=== PATIENT | female | born 1945 | race Caucasian/White ===

== ENCOUNTER 2025-09-06 11:54 | Emergency (ER) | payer MEDICARE, SELFPAY ==
[2025-09-06 11:56] VITALS: BP 182/85; PULSE 96; RESP 18; TEMP 37.9; O2SAT 98
[2025-09-06 11:58] VITALS: TEMP 37
--- OUTSIDE RECORDS SUMMARY | 2025-09-06 12:00 | XMS_ITS | Clinical Summary ---
Author Organization [facility] Address [address] [place] [address] Care Team Providers Care Brand Marketing Specialist Name Role Phone Moises Ferguson MD Primary Care Provider [phone] Allergies No known active allergies Medications psyllium seed, sugar, (METAMUCIL, SUGAR,) powder 0 0 5 Active ui-dsc-vmlmx acid-lutein (CENTRUM SILVER) 400-250 mcg tablet,chewabl e 0 0 5 Active aspirin (ASPIRIN LOW DOSE) 81 mg tablet take 1 tablet by oral route every day 0 0 7 Active fluticasone propionate (FLONASE) 50 mcg/actuation nasal sprayIndicatio ns:Allergic Conjunctivitis ,Allergic Rhinitis Shake liquid and use 2 sprays in each nostril daily 16 g 1 5 Active blood-glucose meter kitIndications :Type 2 diabetes mellitus with hyperglycemia, without long-term current use of insulin (HCC) 1 kit 2 (two) times a day Test BID DX: diabetes E11.9. Testing bid due to hypogylemia/hyper glycemia. 1 kit 5 04/01/20 26 Active blood glucose diagnostic (glucose blood) stripIndicatio ns:Type 2 diabetes mellitus with hyperglycemia, without long-term current use of insulin (HCC) Use to check blood sugar bid DX:E11.9 testing bid hypoglycemia / hyperglycemia 200 each 3 5 04/01/20 26 Active lancets misc Check blood sugar 4 times a day or as directed. 100 each 4 5 Active pravastatin (PRAVACHOL) 40 mg tabletIndicati ons:Hyperchole sterolemia TAKE 1 TABLET(40 MG) BY MOUTH DAILY 90 tablet 1 5 Active Active Problems Problem Noted Date Diagnosed Date Type 2 diabetes mellitus wit h hyperglycemia, without long-term current use of insulin 04/01/2025 Class 2 severe obesity due t o excess calories with serious comorbidity and body mass index (BMI) of 36.0 to 36.9 in adult 04/01/2025 Encounter for Medicare annual wellness exam 01/29 Assessment & Plan (03/13/2025 12:34 PM CDT): Immunizations were reviewed Eye exam and dental uptodate Bmd ordered Labs were reviewed and ordered Mixed hyperlipimdeia goal ldl is under 100 Declines mammogram last in 2019 Assessment & Plan (02/23/2024 10:31 AM CDT): IMMUNIZATIONS WERE REVIEWED MEDS WERE REVIEWED LABS WERE ORDERED TODAY PRAVACHOL AND FLONASE WERE SENT TODAY DISCUSSED HER WEIGHT TODAY MENTALLY SHE IS DOING OK CONTINUE PRAVACHOL 40 MG PO QDAY FLP AND LDL WERE ORDERED DISCUSSED BETTER DIETARY HABITS Viral infection 10/14/2020 Assessment & Plan (10/14/2020 3:15 PM VISUAL BASIC PROGRAMMER): Pt most likely has viral URI and does not require antibiotics. I am advising supportive care today with flonase and tessalon perles. She can also get mucinex OTC as well for drainage. Covid-19 test was NEGATIVE today. Abnormal mammogram of right breast 12/06/2019 Assessment & Plan (12/06/2019 9:39 AM VISUAL BASIC PROGRAMMER): We had tried to get hold of Miss Lujan when I got the results of the mammogram. I reviewed the results with her today and read her the whole content . She is adamant about not DOING anything about the mammogram. She DOES NOT want to have mammograms repeated either . Pros and cons were reviewed and discussed today . Options given if she dedcides to change her mind about this issue Lichen planus 05/25/2018 Asthma 03/15/2014 Overview (02/02/2017): ASTHMA NOS Allergic state 04/03/2013 Overview (02/02/2017): H/O seasonal allergies Hypercholesterolemia 01/17/2013 Overview (02/01/2017): Hypercholesterolemia Seasonal allergic rhinitis 01/17/2013 Overview (02/02/2017): Seasonal allergies Atrophic vaginitis 01/17/2013 Overview (02/03/2017): Postmenopausal atrophic vaginitis Stress incontinence in female 01/17/2013 Overview (02/03/2017): Urinary, incontinence, stress female Encounters Date Type Department Care Team Description 07/23/2025 Telephone [facility] [address] [facility] [address] [place] [address] Moises Ferguson MD Immunizations 07/10/2025 9:30 AM CDT Office Visit [facility] [address] [facility] [address] [place] [address] Gabrielle Ray NP Type 2 diabetes mellitus with hyperglycemia, without long-term current use of insulin (HCC) (Primary Dx) 07/10/2025 Telephone [facility] [address] [facility] [address] [place] [address] Moises Ferguson MD 07/03/2025 8:10 AM CDT Lab [facility] [address] [facility] [address] [place] [address] Type 2 diabetes mellitus with hyperglycemia, without long-term current use of insulin (HCC) 06/19/2025 10:49 AM CDT - 06/19/2025 11:59 PM CDT Hospital Encounter [facility] [address] [facility] [address] [place] [address] Discharge Disposition: Discharge to home or self care 06/12/2025 11:00 AM CDT - 06/12/2025 11:59 PM CDT Hospital Encounter [facility] [address] [facility] [address] [place] [address] Discharge Disposition: Discharge to home or self care from Last 3 Months Immunizations Immunization Administration Dates Next Due Influenza, Quadrivalent, Hig h Dose, Preservative Free, Intrr 07/28/2021 Influenza, Quadrivalent, Spl it, Preservative Free, Intramuscular 08/19/2020 Influenza, Split 07/30/2011,08/27/2010 Influenza, Trivalent, High D ose, Split, Preservative Free, Intramuscular 07/22/2019,07/18/2018,07/16/2017,08/07,07/21/2015 Influenza, Trivalent, IM (MDV) 5,08/11/2014,08/09/2013,07/31 Influenza, Unspecified 07/23/2025,2024(Deferred: Patient Refused),08/21/2023(Deferred: Patient Refused),1945 Pneumococcal Conjugate PCV 13 05/11/2016 Pneumococcal Polysaccharide PPV23 10/30/2008, Td, adsorbed 06/24/2009 ZOSTER LIVE 08/12/2015,05/26/2015 Surgical History Surgery Date Site/Laterality Comments TOTAL ABDOMINAL HYSTERECTOMY W/ BILATERAL SALPINGOOPHORECTOMY 1993 Hysterectomy, total abdominal, BSO APPENDECTOMY 1988 Appendectomy TOTAL ABDOMINAL HYSTERECTOMY W/ BILATERAL SALPINGOOPHORECTOMY 1988 Hysterectomy, total abdominal, BSO OTHER SURGICAL HISTORY 2010 Grieving: OTHER SURGICAL HISTORY Endometriosis: LEILA/BSO OTHER SURGICAL HISTORY Osteopenia: improved on Fosamax OTHER SURGICAL HISTORY 1988 Appendicitis: Appendectomy OTHER SURGICAL HISTORY 1970 Hand problem: hand surgery Medical History Medical History Date Comments Hx Other Medical Osteopenia Hx Other Medical Bronchospasm Hx Other Medical Rhinitis Hx Other Medical 1967 ; Outc ome: Male Hx Other Medical Grieving; Comme nts: Zhen Vora DO; Outcome: Resolved from Problem List Hx Other Medical puller over visit Endometritis 1993 Endometriosis Hyperlipidemia Hyperlipidemia Hx Other Medical Seasonal allerg ies and asthma Hx Other Medical 1988 Appendicitis Hx Other Medical 1970 Hand problem Hx Other Medical Fx hand 1986/; Comments: MIRLANDE 06/29/2015 - Family History Medical History Relation Name Comments Lung cancer Father 2 Cancer, lung; C ause of : Cancer, lung Anuerysm Mother 2 Aneurysm; Cause of : Aneurysm Diabetes Mother 2 Diabetes mellit us; Other Mother 2 Carotid Aneurys m; Cause of : Carotid Aneurysm Other Son 3 #1 Alive and well; Other Son 4 #2 Alive and well; Relation Name Status Comments Father 1 (Age 53) Father 2 Mother 1 Mother 2 Son 1 #1 Alive Son 2 #2 Alive Son 3 #1 Son 4 #2 Social History Tobacco Use Types Packs/Day Years Used Date Smoking Tobacco: Never Smokeless Tobacco: Never Tobacco Cessation:Counseling Given: Not Answered Alcohol Use Standard Drinks/Week Comments Yes 0 (1 standard drink = 0.6 oz pur e alcohol) PHQ-2 Answer Date Recorded PHQ-2 Total Score (If total score is 3 or more points, staff should administer the PHQ-9) 0 07/10/2025 Comments No Sex and Gender Information Value Date Recorded Sex Assigned at Not on file Legal Sex Female 12:10 PM VISUAL BASIC PROGRAMMER Gender Identity Not on file Sexual Orientation Not on file Last Filed Vital Signs Vital Sign Reading Time Taken Comments Blood Pressure 132/64 07/10/2025 9:09 AM CDT Pulse 74 07/10/2025 9:09 AM CDT Temperature 37.2 C (98.9 F) 07/10/2025 9:09 AM CDT Respiratory Rate 18 07/10/2025 9:09 AM CDT Oxygen Saturation 96% 07/10/2025 9:09 AM CDT Inhaled Oxygen Concentration - - Weight 83.5 kg (184 lb) 07/10/2025 9:09 AM CDT Height 165.1 cm (5' 5) 07/10/2025 9:09 AM CDT Body Mass Index 30.62 07/10/2025 9:09 AM CDT Plan of Treatment Health Maintenance Due Date Last Done Comments Hepatitis C Screening 1945 Dilated Eye Exam 1945 Hepatitis B Screening 1964 DTaP/Tdap/Td Vaccine (1 - Tdap) 06/25/2009 9 Zoster Vaccine (2 of 3) 10/07/2015 08/12/2015, 05/26 Pneumococcal vaccine 65+ (3 of 3 - PCV20 or PCV21) 05/11/2021 05/11/2016, 10/30/2008, 08/28/2008 Hemoglobin A1C 12/31/2025 07/03/2025, 03/25/2025 Fall Risk Assessment 03/12/2026 03/12/2025, 02/23/2024, 01/26/2023, Additional history exists Lipid Panel 03/12/2026 03/12/2025, 01/29, 01/26/2023, Additional history exists Well Visit 65+ 03/12/2026 03/12/2025, 01/29, 01/26/2023, Additional history exists Albumin Creatinine Ratio, Urine 07/03/2026 eGFR 07/03/2026 07/03/2025, 04/01, 03/12/2025, Additional history exists Depression Screening 07/10/2026 07/10/2025, 05/01/2025, 04/01/2025, Additional history exists Foot Exam 07/10/2026 07/10/2025 Osteoporosis Screening-Bone Density Scan 04/23/2027 04/23/2025 Breast Cancer Screening-Mammogram Discontinued 019 Influenza Vaccine Completed 07/23/2025, , 08/19/2020, Additional history exists Procedures Procedure Name Priority Date/Time Associated Diagnosis Comments EGFR Routine 07/03/2025 7:53 AM CDT Type 2 diabetes mellitus with hyperglycemia, without long-term current use of insulin (HCC) CHOLESTEROL, LDL, DIRECT Routine 07/03/2025 7:53 AM CDT Type 2 diabetes mellitus with hyperglycemia, without long-term current use of insulin (HCC) HEMOGLOBIN A1C Routine 07/03/2025 7:53 AM CDT Type 2 diabetes mellitus with hyperglycemia, without long-term current use of insulin (HCC) COMPREHENSIVE METABOLIC PANEL Routine 07/03/2025 7:53 AM CDT Type 2 diabetes mellitus with hyperglycemia, without long-term current use of insulin (HCC) ALBUMIN CREATININE RATIO, URINE Routine 07/03/2025 7:53 AM CDT Type 2 diabetes mellitus with hyperglycemia, without long-term current use of insulin (HCC) DEXA AXIAL SKELETON BONE DENSITY 1 OR MORE SITES Schedule Routine, Read Routine (OP Routine) 04/23/2025 9:12 AM CDT Menopause LIPID PANEL Routine 03/12/2025 9:58 AM CDT Hypercholesterole adriano SCREENING MAMMOGRAM 2D BILATERAL Schedule Routine, Read Routine (OP Routine) 11/30/2018 10:40 AM VISUAL BASIC PROGRAMMER Breast cancer screening from Last 3 Months or Most Recently Relevant to Health Maintenance Results * eGFR (07/03/2025 7:53 AM CDT) eGFR 89 >=60 mL/min/1. 73 m2 Comment: Interpretive Data Reference Interval Normal >/= 90 mL/min/1.73m2 Mildly decreased* 60 - 89 mL/min/1.73m2 Mildly to moderately decreased 45 - 59 mL/min/1.73m2 Moderately to severely decreased 30 - 44 mL/min/1.73m2 Severely decreased 15 - 29 mL/min/1.73m2 Kidney Failure < 15 mL/min/1.73m2 *Relative to young adult level Estimated glomerular filtration rate is determined by the 2020 CKD-EPI equation recommended by the National Kidney Foundation (A Unifying Approach to GFR Estimation: Recommendations of the NKF-ASK Task Force on Reassessing the Inclusion of Race in Diagnosing Kidney Disease, JASN 2020). The CKD-EPI equation should not be used for patients with unstable renal function and has not been validated in children and those over 70. Current interpretive data was last reviewed 2021. Testing performed by: [facility], [id number] [place] [address], [place]., [address] Blood 07/03/2025 7:53 AM CDT 07/03/2025 2:27 PM CDT us Gabrielle Ray NP LAB BLOOD ORDERABLES Final Resul t TAJ [address] [address] Department [place] [address] * Albumin Creatinine Ratio, Urine (07/03/2025 7:53 AM CDT) Albumin Ur 14.2 mg/L Comment: Interpretive Data No reference range established. Current interpretive data was last revised 2019. Testing performed by: [facility], [address] [place] [address]., [address] Creatinine Ur 94.0 mg/dL TAJ Comment: Interpretive Data No reference range established. Current interpretive data was last revised 2019. Testing performed by: [facility], [address] [place] [address]., [address] Albumin Creatinine Ratio, Ur 15 1 - 29 mg/g TAJ Comment:Testing performed by : [address] [address] Urine 07/03/2025 7:53 AM CDT 07/03/2025 2:10 PM CDT Gabrielle Ray SHAREPOINT WEB DEVELOPER LAB URINE ORDERABLES Final [facility]ul t [facility] [address] Department [place] [address] * Cholesterol, LDL, direct (07/03/2025 7:53 AM CDT) LDL Cholesterol, Direct 95 <=129 mg/dL Comment: Interpretive Data Ages < or = 19 years Acceptable: <110 mg/dL Borderline high: 110-129 mg/dL High: >or= 130 mg/dL Ages > or = 20 years Optimal: <100 mg/dL Near optimal: 100-129 mg/dL Borderline high: 130-159 mg/dL High: >160 mg/dL Literature References: 1. Expert Panel on Integrated Guidelines for Cardiovascular Health and Risk Reduction in Children and Adolescents. Pediatrics 2011;128:S213 2. NCEP Expert Panel. Circulation 2004;110:227 Current Interpretive Data was last revised on 2018. Testing performed by: [address] [address] Blood 07/03/2025 7:53 AM CDT 07/03/2025 2:10 PM CDT Gabrielle Ray NP LAB BLOOD ORDERABLES Final Resul t Performing Organization Address [facility] Co de Phone Number TAJ [address] [facility] [place] [address] * (ABNORMAL) Hemoglobin A1c (07/03/2025 7:53 AM CDT) Hgb A1C 5.7(H) 4.0 - 5.6 % Comment:Testing performed by : [address] [address] Estimated Average Glucose 117 mg/dL TAJ Comment: The ADA recommends reporting an estimated Average Glucose (eAG) with all Hemoglobin A1c results using the equation derived from a study of 507 normal and diabetic adults. Minority populations were underrepresented and children were not included. (Diabetes Care 31:5209-7831, 2008). The eAG is not equivalent to a fasting glucose. Testing performed by: [address] [address] Blood 07/03/2025 7:53 AM CDT 07/03/2025 2:10 PM CDT Gabrielle Ray NP LAB BLOOD ORDERABLES Final Resul t Performing Organization Address [facility] de Phone Number TAJ Aj [facility] [place] [address] * Comprehensive metabolic panel (07/03/2025 7:53 AM CDT) Pathologist [facility] Sodium 140 135 - 145 mmol/L Comment:Testing performed by : [address] [address] Potassium, pl 4.0 3.3 - 4.9 mmol/L TAJ Comment:Testing performed by : [address] [address] Chloride 103 97 - 110 mmol/L TAJ Comment:Testing performed by : [address] [address] CO2 26 22 - 32 mmol/L CERNER CH Comment:Testing performed by : [address] [address] Anion gap 11 2 - 15 mmol/L [facility]ER CH Comment:Testing performed by : [address] [address] BUN 17 6 - 25 mg/dL [facility] CH Comment:Testing performed by : [address], [address] Creatinine 0.67 0.60 - 1.10 mg/dL CERNER CH Comment:Testing performed by : [address], [address] Glucose 111 70 - 199 mg/dL CERNER CH Comment: Interpretive Data Fasting glucose >/= 126 mg/dl is diagnostic for diabetes. Fasting is defined as no caloric intake for at least 8 hours. Fasting glucose between 100 mg/dl to 125 mg/dl is diagnostic of prediabetes. In a patient with classic symptoms of hyperglycemia or hyperglycemic crisis, a random glucose >/= 200 mg/dl is diagnostic for diabetes. In the absence of unequivocal hyperglycemia, results should be confirmed by repeat testing. The classification and Diagnosis of Diabetes Diabetes Care 2021; 46: S19-S40. Current interpretive data was last revised 2022. Testing performed by: [address] [address] Calcium 9.6 8.5 - 10.3 mg/dL CERNER CH Comment:Testing performed by : [address], [address] Bilirubin, total 0.4 0.1 - 1.2 mg/dL [facility]ER CH Comment:Testing performed by : [address] [address] Protein, pl 7.2 6.5 - 8.5 g/dL [facility]ER CH Comment:Testing performed by : [address] [address] Albumin 4.3 3.5 - 5.0 g/dL CERNER CH Comment:Testing performed by : [address], [address] Alk phos 63 40 - 130 Units/L CERNER CH Comment:Testing performed by : [address], [address] ALT 18 7 - 45 Units/L TAJ Comment:Testing performed by : [facility], [address] [place] [address]., [address] AST 17 10 - 45 Units/L [facility] Comment:Testing performed by : [facility], [address] [place] [address]., [address] Blood 07/03/2025 7:53 AM CDT 07/03/2025 2:10 PM CDT Gabrielle Ray SHAREPOINT WEB DEVELOPER LAB BLOOD ORDERABLES Final Resul t TAJ [address] [facility] Department of Laboratories [place] [id number] * Dexa Axial Skeleton Bone Density 1 or 2 Site (04/23/2025 9:12 AM CDT) Anatomical Region Laterality Modality Body N/A Other 04/23/2025 6:02 PM CDT Narrative 04/23/2025 6:03 PM CDT EXAM DESCRIPTION: DEXA AXIAL SKELETON BONE DENSITY 1 OR MORE SITES REASON FOR STUDY: 80 y/o year old F with given history of: menopause screening 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 CLINICAL INFORMATION: Current height: 66 inches Maximum height: 66 inches Weight: 217 pounds Risk factors: Postmenopausal COMPARISON: None available FINDINGS: AP LUMBAR SPINE L1-L4: Total BMD is 1.016 g/cm2 T-score is -0.3 LEFT HIP: Total BMD is 1.085 g/cm2 T-score is 1.2 Femoral neck BMD is 0.782 g/cm2 T-score is -0.6 FRAX: FRAX not reported due to T-scores of hip, femoral neck and/or spine being at or above -1.0 (Normal). IMPRESSION: 1. Normal bone mass. REFERENCE: Bone mineral density: T-Score: Normal (T-score above or = -1.0) Low bone mass (T-score between -1.0 and -2.5) replaces the previously used term osteopenia Osteoporosis (T-score = or below -2.5) Z-Score: Within the expected range for age (Z-score above -2.0) Below the expected range for age (Z-score is -2.0 or below) Please see below follow up recommendations. Medical evaluation for secondary causes of low bone mineral density may be appropriate. FRAX is a World Health Organization validated fracture risk assessment tool that calculates a person's 10 year probability of a major osteoporosis related fracture and hip fracture. According to the National Osteoporosis Foundation guidelines, postmenopausal women and men age 50 or older with low bone mass and a 10 year probability of a major osteoporosis related fracture = or greater than 20% or a 10 year probability of a hip fracture = or greater than 3% should be considered for pharmacological treatment for the prevention of osteoporosis. For further information, including treatment recommendations, please refer to the 2019 ISCD Official Positions (http://www.iscd.org) and the NOF's Clinician's Guide to Prevention and Treatment of Osteoporosis (http://www.nof.org/professionals/clinical-guidelines) THIS IS AN ELECTRONICALLY VERIFIED FINAL REPORT 04/23/2025 6:03 PM - Electronically signed by Ibrahima Dodson M.D. MF: SCOT Report ID: [id number] Reading Location: [id number] Procedure Note Ibrahima Dodson MD - 04/23/2025 EXAM DESCRIPTION: DEXA AXIAL SKELETON BONE DENSITY 1 OR MORE SITES REASON FOR STUDY: 80 y/o year old F with given history of: menopause screening Charge Weigher/Model: [employer] (S/N [id number]) Facility LSC value of 0.022 for the AP spine, 0.027 for the femur, and0.023 for the forearm. CLINICAL INFORMATION: Current height: 66 inches Maximum height: 66 inches Weight: 217 pounds Risk factors: Postmenopausal COMPARISON: None available FINDINGS: AP LUMBAR SPINE L1-L4: Total BMD is 1.016 g/cm2 T-score is -0.3 LEFT HIP: Total BMD is 1.085 g/cm2 T-score is 1.2 Femoral neck BMD is 0.782 g/cm2 T-score is -0.6 FRAX: FRAX not reported due to T-scores of hip, femoral neck and/or spine beingat or above -1.0 (Normal). IMPRESSION: 1. Normal bone mass. REFERENCE: Bone mineral density: T-Score: Normal (T-score above or = -1.0) Low bone mass (T-score between -1.0 and -2.5) replaces thepreviously used term osteopenia Osteoporosis (T-score = or below -2.5) Z-Score: Within the expected range for age (Z-score above -2.0) Below the expected range for age (Z-score is -2.0 or below) Please see below follow up recommendations. Medical evaluation forsecondary causes of low bone mineral density may be appropriate. FRAX is a World Health Organization validated fracture risk assessmenttool that calculates a person's 10 year probability of a major osteoporosisrelated fracture and hip fracture. According to the National OsteoporosisFoundation guidelines, postmenopausal women and men age 50 or older with low bonemass and a 10 year probability of a major osteoporosis related fracture = or greater than 20% or a 10 year probability of a hip fracture = or greaterthan 3% should be considered for pharmacological treatment for the preventionof osteoporosis. For further information, including treatment recommendations, please referto the 2019 ISCD Official Positions (http://www.iscd.org) and the NOF's Clinician's Guide to Prevention and Treatment of Osteoporosis (http://www.nof.org/professionals/clinical-guidelines) THIS IS AN ELECTRONICALLY VERIFIED FINAL REPORT 04/23/2025 6:03 PM - Electronically signed by Ibrahima Dodson M.D. MF: SCOT Report ID: [id number] Reading Location: [place] [address] Moises Ferguson MD IM DXA PROCEDURES Final R esult * (ABNORMAL) Lipid panel (03/12/2025 9:58 AM CDT) [facility] Cholesterol 196 30 - 199 mg/dL Comment: Interpretive Data Ages < or = 19 years Acceptable: <170 mg/dL Borderline high: 170-199 mg/dL High: >or= 200 mg/dL Ages > or = 20 years Desirable: <200 mg/dL Borderline high: 200-239 mg/dL High: >or= 240 mg/dL Literature References: 1. Expert Panel on Integrated Guidelines for Cardiovascular Health and Risk Reduction in Children and Adolescents. Pediatrics 2011;128:S213 2. NCEP Expert Panel. Circulation 2004;110:227 Current Interpretive Data was last revised on 2018. Testing performed by: [address] [address] Triglycerides 272(H) <=149 mg/dL ATJ Comment: Interpretive Data Ages < or = 9 years Acceptable: <75 mg/dL Borderline high: 75-99 mg/dL High: >or= 100 mg/dL Ages 10 to 20 years Acceptable: <90 mg/dL Borderline high: 90-129 mg/dL High: >or= 130 mg/dL Ages > or = 20 years Desirable: <150 mg/dL Borderline high: 150-199 mg/dL High: 200-499 mg/dL Very high: >or= 499 mg/dL Literature References: 1. Expert Panel on Integrated Guidelines for Cardiovascular Health and Risk Reduction in Children and Adolescents. Pediatrics 2011;128:S213 2. NCEP Expert Panel. Circulation 2004;110:227 Current Interpretive Data was last revised on 2018. Testing performed by: [facility], [address] [place] [address]., [address] HDL 48 >=40 mg/dL TAJ Comment: Interpretive Data Ages < or = 19 years Acceptable: >45 mg/dL Borderline low: 40-45 mg/dL Low: <40 mg/dL Ages > or = 20 years Desirable: >or= 60 mg/dL Low: <40 mg/dL Literature References: 1. Expert Panel on Integrated Guidelines for Cardiovascular Health and Risk Reduction in Children and Adolescents. Pediatrics 2011;128:S213 2. NCEP Expert Panel. Circulation 2004;110:227 Current Interpretive Data was last revised on 2018. Testing performed by: [address] [address] LDL, calculated 102 <=129 mg/dL TAJ Comment: Interpretive Data Ages < or = 19 years Acceptable: <110 mg/dL Borderline high: 110-129 mg/dL High: >or= 130 mg/dL Ages > or = 20 years Optimal: <100 mg/dL Near optimal: 100-129 mg/dL Borderline high: 130-159 mg/dL High: >160 mg/dL Calculated using the Umberto LDL-C estimating equation. This equation was implemented on 2024. Prior to this date LDL-C was estimated using the Friedewald equation. Literature References: 1. Expert Panel on Integrated Guidelines for Cardiovascular Health and Risk Reduction in Children and Adolescents. Pediatrics 2011;128:S213 2. NCEP Expert Panel. Circulation 2004;110:227 3. Umberto Mccann et al. TAM Cardiol. 2020 February 27;5(5):540-548. doi: 10.1001/jamacardio.2020.0013 Current Interpretive Data was last revised on 2024. Testing performed by: [address] [address] Non-HDL Cholesterol 148 mg/dL [facility]J FORRESTER Comment: Interpretive Data Ages < or = 19 years Acceptable: <120 mg/dL Borderline high: 120-144 mg/dL High: >145 mg/dL Ages > or = 20 years When triglycerides are >200 mg/dL, Non-HDL cholesterol is a secondary target of therapy with treatment goals that are 30 mg/dL greater than the LDL cholesterol target. Literature References: 1. Expert Panel on Integrated Guidelines for Cardiovascular Health and Risk Reduction in Children and Adolescents. Pediatrics 2011;128:S213 2. NCEP Expert Panel. Circulation 2004;110:227 Current Interpretive Data was last revised on 2018. Testing performed by: [address] [address] Chol/HDL ratio 4 TAJ FORRESTER Comment:Testing performed by : [address] [address] Blood 03/12/2025 9:58 AM CDT 03/12/2025 7:45 PM CDT us Moises Ferguson MD LAB BLOOD ORDERABLES Final Result TAJ FORRESTER [address] [place] [address] [place] [address] * Screening Mammogram 2D Bilateral (11/30/2018 10:40 AM VISUAL BASIC PROGRAMMER) Anatomical Region Laterality Modality Breast Bilateral Mammography Narrative 11/30/2018 3:28 PM VISUAL BASIC PROGRAMMER BILATERAL DIGITAL MAMMOGRAPHY The present examination has been compared to prior imaging studies dated 04/20/2016 and 09/19/2014 Mammography Findings CAD (computer-aided detection) software was utilized. The breasts are heterogeneously dense. This may lower the sensitivity of mammography. There is a focal area in the upper outer right breast where there are microcalcifications. These have increased in number since the previous examination. Spot magnification view of the upper outer right breast is recommended for further evaluation. Impression Calcifications in the upper outer right breast and additional views are recommended for further evaluation. BI-RADS Category 0: Additional imaging is recommended. PATIENT LETTER SENT Moises Ferguson MD IMG MAMMO PROCEDURES Final Result from Last 3 Months or Most Recently Relevant to Health Maintenance Insurance [facility] MED[employer] [facility] [employer] AET MEDICARE Care Teams Brand Marketing Specialist Relationship Specialty Start Date End Date Moises Ferguson MD [address] [place] [address] PCP - General 01/27/17
--- NOTE | 2025-09-06 12:08 | ED.NECK ---
HPI - Neck Pain/Injury General Chief Complaint: Neck Pain/Injury Stated Complaint: Neck Pain Time Seen by Provider: 09/06/25 12:09 Source: patient Mode of arrival: ambulatory Limitations: no limitations History of Present Illness HPI Narrative: Le is a 80 year old female patient presenting to the clinic today with c/o neck pain x 2 days. She reports has not taken any medications for her symptoms. Denies any radiation of pain down her arms. No known injury. Woke up with pain to the posterior neck. Is having pain with turning head side to side and with flexion and extension of the neck. Rates pain 07/09. Related Data Home Medications ?Medication ?Instructions ?Recorded ?Confirmed ?Last Taken ?Type fluticasone propionate 50 intranasal 09/06/25 Unknown History mcg/actuation nasal spray,suspension pravastatin 40 mg tablet mg 09/06/25 Unknown History Allergies Allergy/AdvReac Type Severity Reaction Status Date / Time No Known Allergies Allergy Verified 09/06/25 12:18 Review of Systems Review of Systems: Pertinent positives per HPI. Patient denies any fever, chills, rash, headache, visual changes, dizziness, cough, runny nose, sore throat, shortness of breath, chest pain, palpitations, nausea, vomiting, diarrhea, constipation, abdominal pain, or any urinary issues. PMFSH Comments At the time of my signature, I reviewed and agree with the nursing past medical, surgical, social, and family history. There is no relevant family history pertinent to the patient complaint. Exam Narrative: General: Well-developed, well nourished, in no apparent distress Head: Normocephalic, atraumatic. Cardio: Regular rate and rhythm, s1 and s2 normal, no murmur appreciated. Resp: Clear to auscultation bilaterally, no rhonchi, rales, wheezing or rubs. Musculoskeletal: No deformity, posterior neck/paraspinous musculature -tender to palpation, limited range of motion when turning head side to side and with flexion and extension of the neck, muscle strength strong and equal, peripheral pulse strong, no edema, no cyanosis, normal gait and station Course Course Emergency Course: Portions of this record may have been created with voice recognition software. Level of Care: Express Care Visit Vital Signs Vital signs: Vital signs reviewed MDM - Neck Pain/Injury MDM Narrative Medical decision making narrative: At the time of visit patient is resting comfortably on the exam table. Patient appears to be nontoxic. C/o neck pain x 2 days. She reports has not taken any medications for her symptoms. Denies any radiation of pain down her arms. No known injury. Woke up with pain to the posterior neck. Is having pain with turning head side to side and with flexion and extension of the neck. Rates pain 9/10. Plan: I suspect patient has acute neck pain/torticollis. Prescription for baclofen and naproxen was sent to the pharmacy. Supportive measures were discussed with the patient and they voiced understanding discharge instructions and agrees to treatment plan. Return precautions reviewed Differential Diagnosis Differential diagnosis: Likely disc disorder of cervical region, whiplash injury to neck, closed subluxation of cervical spine, fracture of cervical spine without lesion of spinal cord, cervical radiculopathy, vertebral artery dissection, torticollis, cervical spondylosis and strain of neck muscle Discharge Plan Discharge Clinical Impression: Acute torticollis Patient Disposition: Home Condition: Stable Instructions: Antibiotic Form, Spasmodic Torticollis (ED) Additional Instructions: Take any prescription medication only as prescribed-methocarbamol and naproxen Be mindful of sedation precautions given to you if taking a muscle relaxer. May use heat or ice to the affected area Consider massage or chiropractor adjustment if this was discussed with provider May use blue emu, lidocaine patches, or asper cream to affected area- do not apply heat or ice directly over cream- can cause burn. Complete appropriate neck stretching exercises. Follow up with your PCP in 3-5 days if symptom persist. Patient Language: Chinese Prescriptions: New baclofen 10 mg tablet 10 mg PO BID PRN (Reason: muscle pain) 7 Days Qty: 14 0RF naproxen 500 mg tablet 500 mg PO BID PRN (Reason: pain) 7 Days Qty: 14 0RF No Action pravastatin 40 mg tablet fluticasone propionate 50 mcg/actuation spray,suspension INTRANASAL Follow-up/Referrals: Marty,MD Moises [Primary Care Provider] Time of Disposition: 12:27 Quality NIHSS Nursing Documentation ED NIHSS nursing documentation: reviewed/agree
== END 2025-09-06 12:30 | disposition home or self-care (01) ==
PROVIDERS: Emergency Provider Nurse Practitioner Family; PCP Internal Medicine Infectious Disease
DX: M43.6 Torticollis (principal); E11.9 Type 2 diabetes mellitus without complications; E78.00 Pure hypercholesterolemia, unspecified
CPT/HCPCS: 99213; G0463